=== PATIENT | female | born 1990 | race Hispanic/Latino ===

== ENCOUNTER 2024-11-09 08:45 | Emergency (ER) | payer BC, SELFPAY ==
--- NOTE | 2024-11-09 09:11 | EDPHYS ---
Physician Documentation [facility] Name: Malinda Mckinnon Age: 34 yrs Sex: Female : 1990 Arrival Date: 11/09/2024 Time: 08:45 Bed 14 Private MD: ED Physician Daryl Alvarado HPI: 11/09 09:35 This 34 yrs old Female presents to ER via Ambulatory with complaints of STD rt Exposure. 09:35 Patient states that she recently discovered that her has been having relations rt with other women, states that been on for some time. Patient states that she shaved her genital region, states that she noted a few bumps to that area, wishes to be checked for STD, states it may be razor burn. Denies other acute complaints at this time, symptoms are mild in severity, no other aggravating or elevating factors. Denies dysuria, vaginal discharge. Historical: - Allergies: 09:13 No Known Allergies; db - PMHx: 09:13 None; db - Immunization history:: Adult Immunizations unknown. - Infectious Disease History:: Denies. - Social history:: Smoking status: Patient denies any tobacco usage or history of. ROS: 09:35 Constitutional: Negative for fever, chills, and weight loss, Cardiovascular: Negative rt for chest pain, palpitations, and edema, Respiratory: Negative for shortness of breath, cough, wheezing, and pleuritic chest pain, Abdomen/GI: Negative for abdominal pain, nausea, vomiting, diarrhea, and constipation, 09:35 : Negative for vaginal bleeding, vaginal discharge, vaginal itching, Exam: 09:35 Constitutional: This is a well developed, well nourished patient who is awake, alert, rt and in no acute distress. Head/Face: Normocephalic, atraumatic. Abdomen/GI: Soft, non-tender, with normal bowel sounds. No distension or tympany. No guarding or rebound. No evidence of tenderness throughout. MS/ Extremity: Pulses equal, no cyanosis. Neurovascular intact. Full, normal range of motion. Neuro: Awake and alert, GCS 15, oriented to person, place, time, and situation. Cranial nerves II-XII grossly intact. Motor strength 5/5 in all extremities. Sensory grossly intact. Cerebellar exam normal. Normal gait. 09:35 : Small nontender bumps are consistent with a razor burn, does not have appearance of herpes simplex, no vaginal discharge noted externally, Vital Signs: 09:12 BP 112 / 74; Pulse 74; Resp 16; Temp 97.8; Pulse Ox 98% ; db MDM: 09:04 Medical Screening Exam initiated rt 09:35 Differential Diagnosis Resolving, STI, herpes simplex. Data reviewed: vital signs, rt nurses notes. Counseling: I had a detailed discussion with the patient and/or guardian regarding the historical points, exam findings, and any diagnostic results supporting the discharge/admit diagnosis, the need for outpatient follow up, to return to the emergency department if symptoms worsen or persist or if there are any questions or concerns that arise at home. Administered Medications: No medications were administered Disposition Summary: 11/09/24 09:11 Discharge Ordered Notes: Location: Home rt Problem: new rt Symptoms: are unchanged rt Condition: Stable rt Diagnosis - Rash and other nonspecific skin eruption rt Followup: rt - With: Private Physician - When: 2 - 3 days - Reason: Discharge Instructions: - Discharge Summary Sheet rt - Rash, Adult rt Forms: - Medication Reconciliation Form rt - Antibiotic Education rt - Prescription Opioid Use rt - Patient Portal Instructions rt - Leadership Thank You Letter rt Signatures: Kristin Mccormack RN RN db Daryl Alvarado MD MD rt
--- NOTE | 2024-11-09 09:18 | ER ---
Nurse's Notes [facility] Name: Malinda Mckinnon Age: 34 yrs Sex: Female : 1990 Arrival Date: 11/09/2024 Time: 08:45 Bed 14 Private MD: Diagnosis: Rash and other nonspecific skin eruption Presentation: 11/09 09:12 Chief complaint: Patient states: PARTNER CHEATED AND WANTS TO GET CHECKED. CONCERNED db FOR ABNORMAL BUMP. Coronavirus screen: Client denies travel out of the [place] in the last 14 days. At this time, the client does not indicate any symptoms associated with coronavirus-19. Ebola Screen: Patient negative for fever greater than or equal to 101.5 degrees Fahrenheit, and additional compatible Ebola Virus Disease symptoms Patient denies exposure to infectious person. Patient denies travel to an Ebola-affected area in the 21 days before illness onset. No symptoms or risks identified at this time. Initial Sepsis Screen: Does the patient meet any 2 criteria? No. Patient's initial sepsis screen is negative. Does the patient have a suspected source of infection? No. Patient's initial sepsis screen is negative. Risk Assessment: Do you want to hurt yourself or someone else? Patient reports no desire to harm self or others. Onset of symptoms was November 09, 2024. 09:12 Method Of Arrival: Ambulatory db 09:12 Acuity: DENNY 4 db Triage Assessment: 09:13 General: Appears in no apparent distress. comfortable, Behavior is calm, cooperative. db Pain: Denies pain. Historical: - Allergies: 09:13 No Known Allergies; db - PMHx: 09:13 None; db - Immunization history:: Adult Immunizations unknown. - Infectious Disease History:: Denies. - Social history:: Smoking status: Patient denies any tobacco usage or history of. Screenin:13 [facility] ED Fall Risk Assessment (Adult) History of falling in the last 3 months, db including since admission No falls in past 3 months (0 pts) Confusion or Disorientation No (0 pts) Intoxicated or Sedated No (0 pts) Impaired Gait No (0 pts) Mobility Assist Device Used No (0 pt) Altered Elimination No (0 pt) Score/Fall Risk Level 0 - 2 = Low Risk Oriented to surroundings, Maintained a safe environment. Abuse screen: Denies threats or abuse. Denies injuries from another. Nutritional screening: No deficits noted. Tuberculosis screening: No symptoms or risk factors identified. Assessment: 09:13 Reassessment: SEE TRIAGE FOR INITIAL ASSESSMENT. Derm: Reports "BUMPS" IN VAGINAL AREA. db Vital Signs: 09:12 BP 112 / 74; Pulse 74; Resp 16; Temp 97.8; Pulse Ox 98% ; db ED Course: 08:50 Patient arrived in ED. al6 08:57 Kristin Mccormack, RN is Primary Nurse. db 09:01 Daryl Alvarado MD is Attending Physician. rt 09:13 Triage completed. db 09:13 Arm band placed on Patient placed in an exam room. db 09:13 Patient has correct armband on for positive identification. Bed in low position. Call db light in reach. Side rails up X 1. Pillow given. 09:13 Assist provider with pelvic exam: Performed by Daryl Alvarado MD. Patient did not have db IV access during this emergency room visit. 09:15 Provided Education on: FOLLOWUP WITH OTR DRIVER. db Administered Medications: No medications were administered Medication: 09:13 VIS not applicable for this client. db Outcome: 09:11 Discharge ordered by . rt 09:13 Discharged to home ambulatory, db 09:13 Condition: stable 09:13 Discharge instructions given to patient, Instructed on discharge instructions, follow up and referral plans. 09:17 Patient left the ED. db Signatures: Kristin Mccormack, RN RN Daryl Martin MD MD rt Carlos Gusmanssa al6
[2024-11-09 15:33] VITALS: BP 112/74; TEMP 97.8; O2SAT 98
== END 2024-11-09 09:17 | disposition home or self-care (01) ==
LOC: ER 08:45
DX: R21 Rash and other nonspecific skin eruption (principal)

== ENCOUNTER 2024-11-14 07:58 | Emergency (ER) | payer SELFPAY ==
[2024-11-14 08:42] LABS: Specific Gravity 1.027 (1.005-1.030)
[2024-11-14 08:44] LABS: Specific Gravity 1.027 (1.005-1.030); Sqamous Epithelial >50 /HPF (None Seen); Urine Bacteria >50 /HPF (<20); Urine Bilirubin NEGATIVE (Negative); Urine Blood 2+ (Negative); Urine Clarity Extremely Turbid (Clear); Urine Color Light-Orange (Yellow); Urine Culture Reflex Order REFLEXED; Urine Glucose NEGATIVE (Negative); Urine Ketones 1+ (Negative); Urine Microscopic Reflex YN ORDER UMIC; Urine Mucus 4+ /HPF (None Seen); Urine Nitrite NEGATIVE (Negative); Urine Protein 2+ (Negative); Urine RBC >50 /HPF (None Seen); Urine Urobilinogen Normal (Normal); Urine WBC >50 /HPF (<5); Urine WBC Clump Few /HPF (None Seen)
--- NOTE | 2024-11-14 09:12 | ER ---
Nurse's Notes [facility] Name: Malinda Mckinnon Age: 34 yrs Sex: Female : 1990 Arrival Date: 11/14/2024 Time: 07:58 Bed 15 Private MD: Diagnosis: UTI/ Urinary tract infection, site not specified Presentation: 11/14 08:28 Chief complaint: Patient states: Burning with urination, new skin rash to vaginal area, ll1 fever, and body aches since last Thursday. Coronavirus screen: Client denies travel out of the [place] in the last 14 days. At this time, the client does not indicate any symptoms associated with coronavirus-19. Ebola Screen: Patient denies travel to an Ebola-affected area in the 21 days before illness onset. Initial Sepsis Screen: Does the patient meet any 2 criteria? No. Patient's initial sepsis screen is negative. Does the patient have a suspected source of infection? No. Patient's initial sepsis screen is negative. Risk Assessment: Do you want to hurt yourself or someone else? Patient reports no desire to harm self or others. Onset of symptoms was November 09, 2024. 08:28 Method Of Arrival: Ambulatory ll1 08:28 Acuity: DENNY 3 ll1 Triage Assessment: 08:30 General: Appears uncomfortable, Behavior is cooperative, appropriate for age, anxious. ll1 Pain: Complains of pain in vaginal area Quality of pain is described as aching. : Reports burning with urination, sores to vaginal area. Derm: Reports burning. Historical: - Allergies: 08:43 No Known Allergies; hb - Home Meds: 08:43 None [Active]; hb - PMHx: 08:43 None; hb - PSHx: 08:43 None; hb - Immunization history:: Adult Immunizations up to date. - Infectious Disease History:: Denies. - Social history:: Smoking status: Patient denies any tobacco usage or history of. Screenin:42 [facility] ED Fall Risk Assessment (Adult) History of falling in the last 3 months, hb including since admission No falls in past 3 months (0 pts) Confusion or Disorientation No (0 pts) Intoxicated or Sedated No (0 pts) Impaired Gait No (0 pts) Mobility Assist Device Used No (0 pt) Altered Elimination No (0 pt) Score/Fall Risk Level 0 - 2 = Low Risk Oriented to surroundings, Maintained a safe environment, Educated pt \T\ family on fall prevention, incl call for assistance when getting out of bed. Abuse screen: Denies threats or abuse. Denies injuries from another. Nutritional screening: No deficits noted. Tuberculosis screening: No symptoms or risk factors identified. Assessment: 08:41 General: Appears in no apparent distress. Behavior is calm, cooperative. Pain: Pain hb currently is 1 out of 10 on a pain scale. Neuro: Level of Consciousness is awake, alert, obeys commands, Oriented to person, place, time, situation. Cardiovascular: Patient's skin is warm and dry. Respiratory: Respiratory effort is even, unlabored, Respiratory pattern is regular, symmetrical. GI: No signs and/or symptoms were reported involving the gastrointestinal system. : Reports dysuria, 2 small red bumps near vagina. EENT: No signs and/or symptoms were reported regarding the EENT system. Derm: Skin is pink, warm \T\ dry. Musculoskeletal: No signs and/or symptoms reported regarding the musculoskeletal system. Vital Signs: 08:28 BP 123 / 83; Pulse 95; Resp 16; Temp 99.3; Pulse Ox 97% ; Weight 63.5 kg; Height 5 ft. ll1 3 in. ; 08:28 Body Mass Index 24.80 (63.50 kg, 160.02 cm) ll1 ED Course: 08:03 Patient arrived in ED. gl 08:03 Vicki Wilslon FNP-C [facility]. kb 08:03 Terry Jose DO is Attending Physician. kb 08:21 Mariah Stuart, PIEDAD is Primary Nurse. hb 08:30 Triage completed. ll1 08:30 Assist provider with pelvic exam: Performed by Vicki BROWN Specimens sent to lab. Patient tolerated well. 08:31 Arm band placed on. ll1 08:35 Patient did not have IV access during this emergency room visit. hb 08:35 Strep swab sent to lab. Wet prep swab sent to lab. hb 08:42 Patient has correct armband on for positive identification. Bed in low position. Call light in reach. Provided Education on: tests, result times. Administered Medications: 08:50 Drug: Rocephin (cefTRIAXone) IM 500 mg IM once Route: IM; Site: left deltoid; ld1 09:21 Follow up: Response: No adverse reaction ld1 08:50 Drug: AZITHromycin PO 1 grams PO once Route: PO; ld1 09:21 Follow up: Response: No adverse reaction ld1 Medication: 08:42 VIS not applicable for this client. hb Outcome: 09:11 Discharge ordered by . nat 09:21 Discharged to home ambulatory, ld1 09:21 Condition: stable 09:21 Discharge instructions given to patient, Instructed on discharge instructions, follow up and referral plans. medication usage, Demonstrated understanding of instructions, follow-up care, medications, Prescriptions given X 1, :21 Patient left the ED. ld1 Signatures: Vicki Willson FNP-C FNP-Mariah Schumacher RN RN hb Elio Christie RN RN 1 Odessa Jose RN RN ld1 Chen Moraes, Reg Reg gl Corrections: (The following items were deleted from the chart) 08:43 08:41 Assist provider with pelvic exam: Performed by Vicki BROWN Specimens hb sent to lab. Patient tolerated well. hb 08:43 08:41 Patient did not have IV access during this emergency room visit. hb hb
--- NOTE | 2024-11-14 09:12 | EDPHYS ---
Physician Documentation [facility] Name: Malinda Mckinnon Age: 34 yrs Sex: Female : 1990 Arrival Date: 11/14/2024 Time: 07:58 Bed 15 Private MD: ED Physician Terry Jose HPI: 11/14 08:06 This 34 yrs old Female presents to ER via Unassigned with complaints of Pain kb With Urination, Rash. 08:06 Pt is a 34 year old female who presents for rash to genital area and burning to area kb when urinating. Reports bodyaches, fever started 5 days ago. Reports sore throat. Denies cough, congestion, n/v/d. . Historical: - Allergies: 08:43 No Known Allergies; hb - Home Meds: 08:43 None [Active]; hb - PMHx: 08:43 None; hb - PSHx: 08:43 None; hb - Immunization history:: Adult Immunizations up to date. - Infectious Disease History:: Denies. - Social history:: Smoking status: Patient denies any tobacco usage or history of. ROS: 08:06 Constitutional: As per HPI kb Exam: 08:06 Constitutional: This is a well developed, well nourished patient who is awake, alert, kb and in no acute distress. Head/Face: Normocephalic, atraumatic. ENT: Moist Mucous membranes Cardiovascular: Regular rate Respiratory: Respirations even and unlabored. No increased work of breathing. Talking in full sentences Abdomen/GI: Soft, non-tender. No distention Skin: Warm, dry with normal turgor. Normal color. MS/ Extremity: Pulses equal, no cyanosis. Neurovascular intact. Full, normal range of motion. Neuro: Awake and alert, GCS 15, oriented to person, place, time, and situation. 09:04 : Pelvic Exam: External exam: erythema is noted, discharge, white, the nurse was kb present for the exam, Vital Signs: 08:28 BP 123 / 83; Pulse 95; Resp 16; Temp 99.3; Pulse Ox 97% ; Weight 63.5 kg; Height 5 ft. ll1 3 in. ; 08:28 Body Mass Index 24.80 (63.50 kg, 160.02 cm) ll1 MDM: 08:03 Medical Screening Exam initiated kb 09:03 Differential diagnosis: UTI, sti. Data reviewed: vital signs, nurses notes. Test kb considered but Not performed: Labs: cbc, cmp considered but pt is nontoxic in appearance, no abd pain/tenderness. Counseling: I had a detailed discussion with the patient and/or guardian regarding the historical points, exam findings, and any diagnostic results supporting the discharge/admit diagnosis, lab results, the need for outpatient follow up, a family practitioner, to return to the emergency department if symptoms worsen or persist or if there are any questions or concerns that arise at home. 09:05 ED course: Patient is a 34-year-old female who presents for fever, body aches, sore kb throat that is worse with swallowing, sores to genital area, dysuria and increased vaginal discharge. Patient is concerned for STIs. On exam patient has no abdominal tenderness. Erythema to posterior pharynx. Marked erythema and clear vaginal discharge noted on pelvic exam. Small red sores to mons pubis, do not appear to be ulcerations or herpetic lesions. Wet prep negative, strep test negative, urine positive for UTI. Discussed STI treatment with patient. Patient request treatment for gonorrhea and chlamydia. Zithromax and Rocephin ordered. Will prescribe Augmentin for UTI. Patient educated to follow-up with gynecology for further testing and to watch the patient portal for GC results. Verbal understanding received on all instructions.. 11/14 08:12 Order name: Wet Prep; Complete Time: 09:02 kb 11/14 08:12 Order name: GC (Kenneth/Chl) Probe VAGINAL (Do not order if pt is under 13, order Culture kb instead) 11/14 08:12 Order name: Group A Streptococcus Rapid; Complete Time: 09:02 kb 11/14 08:12 Order name: UA Rfx Raghavendra Cult if indicated; Complete Time: 08:46 kb 11/14 08:12 Order name: Test, Urine; Complete Time: 08:46 kb 11/14 08:47 Order name: Urine Culture EDMS 11/14 08:55 Order name: Throat Culture EDMS Administered Medications: 08:50 Drug: Rocephin (cefTRIAXone) IM 500 mg IM once Route: IM; Site: left deltoid; ld1 09:21 Follow up: Response: No adverse reaction ld1 08:50 Drug: AZITHromycin PO 1 grams PO once Route: PO; ld1 09:21 Follow up: Response: No adverse reaction ld1 Disposition: 11:16 I was immediately available on-site in the Emergency Department for consultation in the ms3 care of the patient. Disposition Summary: 11/14/24 09:11 Discharge Ordered Notes: Location: Home kb Condition: Stable kb Diagnosis - UTI/ Urinary tract infection, site not specified kb Followup: kb - With: Emergency Department - When: As needed - Reason: Worsening of condition Followup: kb - With: Private Physician - When: 2 - 3 days - Reason: Recheck today's complaints, Continuance of care, Re-evaluation by your physician Discharge Instructions: - Discharge Summary Sheet kb - Urinary Tract Infection, Adult, [id number] kb - Preventing Sexually Transmitted Infections, Adult kb Forms: - Medication Reconciliation Form kb - Antibiotic Education kb - Prescription Opioid Use kb - Patient Portal Instructions kb - Leadership Thank You Letter kb Prescriptions: - Augmentin 875-125 mg Oral Tablet - take 1 tablet ORAL route every 12 hours for 10 days; 20 tablet; Refills: 0, kb Product Selection Permitted Signatures: Dispatcher [employer] EDMO Vicki Willson, YARN DRY ROOM WORKER-C YARN DRY ROOM WORKER-Ckb Mariah Stuart RN RN Terry Jose, DO ms3 Odessa Jose, PIEDAD RN ld1 Corrections: (The following items were deleted from the chart) 08:13 08:13 Wet Prep+BA.LAB.BRZ ordered. EDMS EDMS 08:13 08:13 GC (Kenneth/Chl) Probe VAGINAL+R.LAB.BRZ (Do not order if pt is under 13, order EDMS Culture instead) ordered. EDMS 08:13 08:13 Group A Streptococcus Rapid Sc+I.LAB.BRZ ordered. EDMS EDMS 08:13 08:13 UA Rfx Raghavendra Cult if indicated+U.LAB.BRZ ordered. EDMO EDMS 08:13 08:13 Test, Urine+UC.LAB.BRZ ordered. EDMO EDMS 10:35 09:05 ED course: Patient is a 34-year-old female who presents for fever, body aches, kb sore throat that is worse with swallowing, sores to genital area, dysuria and increased vaginal discharge. Patient is concerned for STIs. On exam patient has no abdominal tenderness. Erythema to posterior pharynx. Marked erythema and clear vaginal discharge noted on pelvic exam. Small red sores to mons pubis, do not appear to be ulcerations or herpetic lesions. Wet prep negative, strep test negative, urine positive for UTI. Discussed STI treatment with patient. Patient request treatment for gonorrhea and chlamydia. Zithromax and Rocephin ordered. Will prescribe antibiotics for UTI. Patient educated to follow-up with gynecology for further testing and to watch the patient portal for GC results. Verbal understanding received on all instructions.. kb
[2024-11-14] MEDS ORDERED: AZITHROMYCIN 250 MG TAB ONE (09:15)
[2024-11-14] MEDS ORDERED: CEFTRIAXONE 500 MG/VIAL ONE (09:15)
[2024-11-14] MEDS ORDERED: WATER FOR INJ,STERILE 10 ML ONE (09:16)
[2024-11-14 09:26] VITALS: BP 123/83; TEMP 99.3; O2SAT 97
== END 2024-11-14 09:21 | disposition home or self-care (01) ==
LOC: ER 07:58
DX: N39.0 Urinary tract infection, site not specified (principal)
CPT/HCPCS: 36415; 81001; 81025; 87070; 87086; 87088; 87210; 87490; 87590; 96372; 99284